=== PATIENT | male | born 1985 | race Two or more races ===

== ENCOUNTER 2018-07-17 13:57 | Emergency (ER) | payer MEDICAID ==
[~2018-07-17] VITALS: Ht 154.9 cm; Wt 70.3 kg
--- NOTE | 2018-07-17 14:59 | Emergency Room Report ---
History of Present Illness General Chief Complaint: Upper Extremity Injury Source: Patient (Erin Merlos) Present Illness HPI 33-year-old male presents to the emergency department complaining of 9 out of 10 in severity pain, swelling, bruising and tenderness to the base of the left thumb since yesterday. Patient reports acute onset after twisting and landing on out-stretched hand. Patient states he is right-hand dominant. Patient denies appreciable trauma or fall otherwise. Denies previous injury to this extremity. He denies open wounds or bleeding. Denies numbness tingling or loss of sensation or gross motor movements of the extremities, incontinence of bowel or bladder. Denies CP, Palpitations, LOC, AMS, dizziness, Changes in Vision, weakness or a sudden severe headache. (Erin Merlos) Allergies: Coded Allergies: No Known Allergies (Unverified , 07/17/18) Patient History Past Medical History: see triage record Past Surgical History: none Pertinent Family History: none Reviewed Nursing Documentation: PMH: Agreed; PSxH: Agreed (Erin Merlos) Nursing Documentation-PMH Past Medical History: No Stated History (Erin Merlos) Review of Systems All Other Systems: negative except mentioned in HPI (Erin Merlos) Physical Exam Vital Signs Date Time Temp Pulse Resp B/P (MAP) Pulse Ox O2 Delivery O2 Flow Rate FiO2 07/17/18 14:15 98.2 61 16 127/81 98 Room Air Sp02 EP Interpretation: reviewed, normal General Appearance: alert, GCS 15, non-toxic, mild distress Head: normocephalic, atraumatic Eyes: bilateral eye normal inspection, bilateral eye PERRL ENT: hearing grossly normal, normal voice Neck: full range of motion Respiratory: lungs clear, normal breath sounds, speaking full sentences Cardiovascular #1: regular rate, rhythm, normal capillary refill Musculoskeletal: back normal, gait/station normal, normal range of motion - with pain, swelling - Base of the left thumb. bruising noted as well. , tender - TTP to the hand at base of the left thumb. + snuff box ttp. Neurologic: alert, oriented x3, responsive, motor strength/tone normal, sensory intact, speech normal, grossly normal Psychiatric: judgement/insight normal Skin: no rash, warm/dry, well hydrated, other - bruising noted on left hand at the base of the thumb (Erin Merlos) Medical Decision Making PA Attestation Dr. Parker is my supervising Physician whom patient management has been discussed with. (Erin Merlos) Diagnostic Impression: Primary Impression: Scaphoid fracture of wrist Qualified Codes: S62.002A - Unspecified fracture of navicular [scaphoid] bone of left wrist, initial encounter for closed fracture Additional Impression: Sprain of hand, left Qualified Codes: S63.92XA - Sprain of unspecified part of left wrist and hand , initial encounter ER Course 33-year-old male presents to the emergency department complaining of 9 out of 10 in severity pain, swelling, bruising and tenderness to the base of the left thumb since yesterday. Patient reports acute onset after twisting and landing on out-stretched hand. Patient states he is right-hand dominant. Patient denies appreciable trauma or fall otherwise. Denies previous injury to this extremity. He denies open wounds or bleeding. Denies numbness tingling or loss of sensation or gross motor movements of the extremities, incontinence of bowel or bladder. Denies CP, Palpitations, LOC, AMS, dizziness, Changes in Vision, weakness or a sudden severe headache. Ddx considered but are not limited to Fracture, dislocation, contusion, Sprain/ Strain/Spasm. Vital signs: are WNL, pt. is afebrile H&PE are most consistent with musculoskeletal injury will perform imaging to r/ o fractures/dislocations. ORDERS: - X-ray Left Hand - negative for fx, Dislocation, or significant soft tissue injury, per preliminary read in ED, and signed by LORENA Merlos, my supervising physician has reviewed, and agrees with my interpretation. ED INTERVENTIONS: - Pierce PO - - Thumb Spika Splint applied to the Left hand by technology advisor. Pt. remains neurovascularly intact. --D/w pt. due to snuff box ttp, swelling and amt. of pain, scaphoid fx is highly suspected and cannot be r/o. d/w pt. orthopedic follow up and repeat xrays in 2 weeks. DISCHARGE: At this time pt. is stable for d/c to home. Will provide printed patient care instructions, and any necessary prescriptions. Care plan and follow up instructions have been discussed with the patient prior to discharge. (Erin Merlos) Other X-Ray Diagnostic Results Other X-Ray Diagnostic Results : X-Ray ordered: Left Hand # of Views/Limited Vs Complete: 3 View Indication: Pain EP Interpretation: Yes PA Xray: Interpretation reviewed, by supervising MD, and agrees with findings. Interpretation: no dislocation, no soft tissue swelling, no fractures Impression: No acute disease Electronically Signed by: Erin Merlos PA-C (Erin Merlos) Other X-Ray Diagnostic Results : Electronically Signed by: Jim documentation reviewed by me and is accurate, Bacilio Parker MD. (Bacilio Parker MD) Last Vital Signs Date Time Temp Pulse Resp B/P (MAP) Pulse Ox O2 Delivery O2 Flow Rate FiO2 07/17/18 14:15 98.2 61 16 127/81 98 Room Air (Erin Merlos) Disposition: HOME, SELF-CARE Condition: Stable Scripts Acetaminophen With Codeine (T#3) (TYLENOL #3 TAB*) Y Tab 1 TAB ORAL Q6HR PRN for For Pain, #6 TAB Prov: Erin Merlos 07/17/18 Ibuprofen* (MOTRIN*) 600 Mg Tablet 600 MG ORAL THREE TIMES A DAY, #30 TAB 0 Refills Prov: Erin Merlos 07/17/18 Departure Forms: Return to Work Return to Work Date: Jul 21, 2018 Work Restrictions: No Heavy Lifting Other Restrictions: limited use of left hand, keep splint on at all times. Return to Full Activity: Aug 04, 2018 Patient Instructions: Scaphoid Fracture, Wrist Additional Instructions: Take medications as directed. Follow up with an [facility] in 3-5 days, even if your symptoms have resolved. REPEAT x-rays in 2 weeks. --Please review list of primary care clinics, if you do not already have a primary care provider who can give you an Orthopedic Referral. Return sooner to ED if new symptoms occur, or current symptoms become worse. Do not drink alcohol, drive, or operate heavy machinery while taking Pierce as this may cause drowsiness. - Please note that this Emergency Department Report was dictated using [employer] aide technology software, occasionally this can lead to erroneous entry secondary to interpretation by the dictation equipment. Erin Merlos Jul 17, 2018 14:59 Bacilio Parker MD Jul 20, 2018 20:41
[2018-07-17] MEDS ORDERED: Norco 5mg/325mg tab ORAL ONE (15:00)
[2018-07-17 15:25] VITALS: BP 124/79
[2018-07-17] MEDS ORDERED: IBUPROFEN600 MG ORAL (15:39)
[2018-07-17] MEDS ORDERED: ACETAMINOPHEN-1 EAC1 ORAL (15:39)
--- NOTE | 2018-07-17 17:38 | Diagnostic Imaging Report ---
Indications: Reason For Exam: PAIN Technique: 3 views of the left hand Comparison: None Findings: No acute fractures. No dislocations. Joint spaces are preserved. No radiopaque foreign body. Normal mineralization. Impression: No acute process
== END 2018-07-17 15:45 | disposition home or self-care (01) ==
LOC: EMR 15:40
DX: S62.002A Unspecified fracture of navicular [scaphoid] bone of left wrist, initial encounter for closed fracture (principal); S63.92XA Sprain of unspecified part of left wrist and hand, initial encounter; X50.1XXA Overexertion from prolonged static or awkward postures, initial encounter; Y92.9 Unspecified place or not applicable
CPT/HCPCS: 29130; 99283